=== PATIENT | female | born 1970 | race Caucasian/White ===

== ENCOUNTER 2022-11-19 05:15 | Emergency (ER) | payer SELFPAY ==
[2022-11-19] MEDS ORDERED: Sodium Chloride 0.9% 10 ML Syringe FLUSH PRN (06:40)
[2022-11-19] MEDS ORDERED: Ketorolac 30 MG/ML SDV IVPUSH ONE (06:40)
[2022-11-19] MEDS ORDERED: Ondansetron 4 MG/2 ML SDV IVPUSH ONE (06:41)
[2022-11-19] MEDS ORDERED: Sodium Chloride 0.9% 1,000 ML IV SCH (06:45)
[2022-11-19 07:07] LABS: BASOPHILS PERCENT AUTO 0.2 % (0.2-1.5); EOSINOPHILS PERCENT AUTO 0.1 % (0.6-8.1); HEMATOCRIT 35.9 % (34.2-48.2); HEMOGLOBIN 12.4 g/dL (11.4-15.5); LYMPHOCYTES ABSOLUTE AUTO 0.4 x10-3/uL (1.0-4.4); LYMPHOCYTES PERCENT AUTO 4.6 % (18.4-52.1); MEAN CORPUSCULAR HGB CONC 34.6 g/dL (31.9-34.8); MEAN CORPUSCULAR VOLUME 89.6 fL (76.7-100.5); MEAN PLATELET VOLUME 8.7 fL (7.1-12.4); MONOCYTES ABSOLUTE AUTO 1.4 x10-3/uL (0.3-1.0); NEUTROPHILS ABSOLUTE AUTO 7.9 x10-3/uL (1.5-6.3); NEUTROPHILS PERCENT AUTO 81.1 % (30.8-76.2); PLATELET COUNT,PLT 228 x10(3)uL (151-488); RED BLOOD CELL COUNT 4.01 x10(6)uL (3.60-5.20); RED CELL DISTRIBUTION WIDTH 12.7 % (12.3-16.5); WHITE BLOOD CELL COUNT,WBC 9.7 x10-3/uL (3.0-10.3)
[2022-11-19 07:12] LABS: BLOOD UREA NITROGEN,BUN 10 mg/dL (7-18); BUN/CREATININE RATIO 11.1 (9-20); CALCIUM 8.9 mg/dL (8.6-10.2); CARBON DIOXIDE,CO2 27 mmol/L (21-32); CHLORIDE,CL 96 mmol/L (100-110); CREATININE 0.9 mg/dL (0.55-1.02); ESTIMATED GFR 77 mL/min (>60); GLUCOSE RANDOM 120 mg/dL (80-116); POTASSIUM,K 3.3 mmol/L (3.5-5.3); SODIUM,NA 134 mmol/L (135-145)
[2022-11-19 07:17] LABS: A/G RATIO 0.6; ALANINE AMINOTRANSFERASE,ALT 25 U/L (12-36); ALBUMIN 2.8 g/dL (3.5-5.2); ALKALINE PHOSPHATASE 111 IU/L (56-112); ASPARTATE AMNIOTRANSFERASE,AST 20 IU/L (5-25); BILIRUBIN TOTAL 0.4 mg/dL (0.1-1.3); PROTEIN TOTAL,TP 7.8 g/dL (6.0-8.0)
[2022-11-19 07:32] LABS: BILIRUBIN,URINE NEGATIVE (NEGATIVE); GLUCOSE,URINE 100 mg/dL (NORMAL); KETONES,URINE 15 mg/dL (NEGATIVE); LEUKOCYTE ESTERASE,URINE SMALL (NEGATIVE); NITRITE,URINE POSITIVE (NEGATIVE); OCCULT BLOOD,URINE LARGE (NEGATIVE); PROTEIN,URINE 100 mg/dL (NEGATIVE); UROBILINOGEN,URINE 4 mg/dL (NEGATIVE)
[2022-11-19 07:38] LABS: APPEARANCE,URINE CLOUDY (CLEAR); BACTERIA,URINE MANY (NS); COLOR,URINE YELLOW (YELLOW); RBC,URINE 20-30 (0-5); SQUAMOUS EPITHELIAL CELLS,UR MODERATE (NS,R,O)
[2022-11-19] MEDS ORDERED: SUMAtriptan 6 MG/0.5 ML SDV SUBCUT ONE (08:45)
== END 2022-11-19 09:22 | disposition home or self-care (01) ==
LOC: FB.ED 05:15
DX: E87.1 Hypo-osmolality and hyponatremia (principal); E87.6 Hypokalemia; G43.909 Migraine, unspecified, not intractable, without status migrainosus; N39.0 Urinary tract infection, site not specified; Z88.6 Allergy status to analgesic agent; Z20.822 Contact with and (suspected) exposure to COVID-19
CPT/HCPCS: 36415; 71045; 80053; 81001; 83605; 85025; 86140; 87086; 87088; 87186; 87635; 96361; 96372; 96374; 96375; 99284; J1885; J2405; J3030; J7030; U0002

== ENCOUNTER 2022-11-20 07:07 | Emergency (ER) | payer SELFPAY ==
[2022-11-20] MEDS ORDERED: Prochlorperazine 10 MG in Sodium Chloride 0.9% 50 ML IV ONE (07:25)
[2022-11-20] MEDS ORDERED: Acetaminophen/oxyCODONE 325-5 MG Tab PO STA (07:25)
[2022-11-20] MEDS ORDERED: Ketorolac 30 MG/ML SDV IVPUSH ONE (07:25)
[2022-11-20] MEDS ORDERED: Sodium Chloride 0.9% 1,000 ML IV SCH (07:30)
== END 2022-11-20 09:43 | disposition home or self-care (01) ==
LOC: FB.ED 07:07
DX: G43.909 Migraine, unspecified, not intractable, without status migrainosus (principal); I11.0 Hypertensive heart disease with heart failure; I50.9 Heart failure, unspecified; Z86.16 Personal history of COVID-19; Z88.6 Allergy status to analgesic agent; Z79.899 Other long term (current) drug therapy
CPT/HCPCS: 96361; 96365; 96375; 99283; A9270; J0780; J1885; J3490; J7030